=== PATIENT | male | born 1965 | race Caucasian/White ===

== ENCOUNTER 2020-06-30 11:17 | Emergency (ER) | payer MEDICAID, SELFPAY ==
[2020-06-30 11:25] VITALS: BP 154/98; PULSE 84; RESP 18; TEMP 36.8; O2SAT 98
--- NOTE | 2020-06-30 11:31 | ED.GENADUL_ITS ---
Discharge Plan Disposition Patient Disposition: HOME Condition: Stable Discharge Details Clinical Impression: Dental abscess, Tooth ache Primary Care Provider: Unknown,Unknown ED Provider: Amy Grossman Home Meds and New Rx's Prescriptions: New clindamycin HCl 300 mg capsule 300 mg PO BID 7 Days Qty: 14 RF: 0 Discharge Instructions Instructions: Dental Abscess (ED), Toothache (ED) Additional Instructions: Take the antibiotic as directed. Please take Tylenol or Ibuprofen with food every 4-6 hours as needed for pain and swelling. You still need to see a dentist. Give the antibiotics 3 days to work. Please return for any worsening swelling, fever, trouble swallowing or any concerns. He has been Hurricaine gel as directed. Medical Decision Making 55-year-old male presents to the ED with chief complaint of left lower jaw swelling and broken molars. He reports that he broke the bottom left tooth about a month ago has not been unable to get into the dentist today woke up with left-sided facial swelling. Painful to take denies any drainage. Took Aleve prior to arrival. He denies any trouble swallowing speaking in full sentences. On initial exam there is no area of fluctuance or drainable abscess noted. Posterior pharynx is red tonsils 2+ bilaterally no exudate. No anterior cervical lymphadenopathy. No palpable area of fluctuance on exam. Does have some perimandibular swelling. Broken molars noted #19 and 18. Patient was given benzocaine Hurricaine gel here in department and sent home wit h. Instructed on alternating Tylenol and ibuprofen. Patient was given first dose of clindamycin here in department and a prescription. Discussed follow-up with dentist and strict return instructions patient verbalized understanding. HPI General Mode of arrival: ambulatory . Date/Time Provider Initiated Documentation: 06/30/20 11:22 . Limitations to Documentation: no limitations . Information obtained by: patient and RN notes reviewed . HPI Narrative: 55-year-old male presents to the ED with chief complaint of left lower jaw swelling and broken molars. He reports that he broke the bottom left tooth about a month ago has not been unable to get into the dentist today woke up with left-sided facial swelling. Painful to take denies any drainage. Took Aleve prior to arrival. He denies any trouble swallowing speaking in full sentences. On initial exam there is no area of fluctuance or drainable abscess noted. Posterior pharynx is red tonsils 2+ bilaterally no exudate. No anterior cervical lymphadenopathy. Related Data Home Medications Medication Instructions Recorded Confirmed clindamycin HCl 300 mg PO BID 7 Days #14 cap 06/30/20 Previous Rx's Medication Instructions Recorded clindamycin HCl 300 mg PO BID 7 Days #14 cap 06/30/20 Allergies Allergy/AdvReac Type Severity Reaction Status Date / Time No Known Allergies Allergy Unverified 06/30/20 11:28 General Stated Complaint: DentalOral EVER: 4 Review of Systems All systems reviewed & are unremarkable except as noted in HPI and below ENT Ears, Nose, Mouth, and Throat: Reports dental pain, Denies dysphagia, Denies dizziness, Reports facial pain (Left-sided facial swelling), Denies sore throat, Denies throat swelling and Denies tongue swelling Cardiovascular Cardiovascular: Reports system reviewed and no additional complaints, except as documented Gastrointestinal Gastrointestinal: Denies dysphagia Neurologic Neurologic: Denies dizziness Allergic/Immunologic Allergic/Immunologic: Denies throat swelling and Denies tongue swelling PFSH Medical History (Updated 06/30/20 @ 11:58 by Amy Grossman) NSVT (nonsustained ventricular tachycardia) Surgical History (Updated 09/08/19 @ 09:18 by Juancarlos Bashir) Pacemaker (03/01/16) Social History Smoking/Tobacco Use Status: Current every day Tobacco Type: cigarettes Smoking risk assessment performed?: Yes Alcohol Intake: never Drug use: Daily Substance use type: marijuana Do you feel safe at home: Yes Do you feel safe in your relationship?: Yes Exam Narrative Exam Narrative: Constitutional: Alert and oriented x3. Appears stated age. Normal body habitus. Head: Normocephalic, no trauma. Eyes: Pupils PERRLA, Red reflex noted, EOM's intact. Eyelids symmetrical without lesions, discharge, or swelling. ENT: Bilateral TM's WNL, External ear normal to inspection, no mastoid TTP, swelling, or erythema, Nasal turbinates WNL, no nasal discharge. See ENT diag robby below Chest: RRR, Normal S1, S2, distal pulses intact. Resp: Lungs clear to auscultation bilaterally, no wheezes, rales, or rhonchi. Musculoskeletal: Normal gait, 5/5 strength to all four extremities. Skin: No suspicious rashes or lesions. Capillary refill less than 2 sec. Neurologic: Cranial nerves II-XII intact. Alert and oriented x 3. DTR's intact. Hematologic/Lymphatic: No ecchymosis, no lymphadenopathy. [facility] Head: normal to inspection Ears: hearing grossly normal bilaterally, external ears normal and TM's normal bilaterally General nose exam: external nose normal, nares normal, no nasal polyps and nasal mucous membranes and turbinates normal Face and sinus: normal facial exam, sinuses nontender and face symmetric Face images: 1. Swelling Mouth: no drooling Teeth and gingiva: caries, gingiva abnormal diffusely erythematous and tender; without any purulent discharge and poor dentition Teeth image: 1. Broken at the base 2. Broken at the base Throat: posterior oropharynx normal, tonsils normal and uvula midline Course Vital Signs Vital signs: Vital Signs Temperature 36.8 C 06/30/20 11:25 Pulse 84 06/30/20 11:25 Respiratory Rate 18 06/30/20 11:25 Blood Pressure 154/98 H 06/30/20 11:25 Pulse Oximetry 98 06/30/20 11:25 Temperature 36.8 C 06/30/20 11:25 Temperature Source Skin 06/30/20 11:25 Pulse 84 06/30/20 11:25 Respiratory Rate 18 06/30/20 11:25 Respiratory Effort Non-Labored 06/30/20 11:29 Blood Pressure 154/98 H 06/30/20 11:25 Blood Pressure Position Sitting 06/30/20 11:25 Pulse Oximetry 98 06/30/20 11:25 Oxygen Delivery Method Room Air 06/30/20 11:25 Oxygen Flow Rate 0 06/30/20 11:25 Pain Level 2 06/30/20 11:25
[2020-06-30] MEDS: Clindamycin 300 MG CAP PO (12:00)
[2020-06-30] MEDS: Benzocaine 20% Gel 30 GM JAR MM (12:01)
== END 2020-06-30 12:04 | disposition home or self-care (01) ==
PROVIDERS: Emergency Provider Registered Nurse Emergency
DX: K04.7 Periapical abscess without sinus (principal); K03.81 Cracked tooth
CPT/HCPCS: 99283

== ENCOUNTER 2021-10-29 10:08 | Emergency (ER) | payer MEDICAID, SELFPAY ==
[2021-10-29 10:14] VITALS: BP 124/81; PULSE 80; RESP 18; TEMP 36.5; O2SAT 98
--- NOTE | 2021-10-29 11:28 | ED.GENADUL_ITS ---
Discharge Plan Disposition Patient Disposition: HOME Condition: Improving Discharge Details Clinical Impression: Pain, dental Primary Care Provider: Unknown,Unknown ED Provider: Cal Luevano Home Meds and New Rx's Prescriptions: New amoxicillin-pot clavulanate 875-125 mg tablet 1 tab PO BID 7 Days Qty: 14 0RF Discharge Instructions Instructions: Toothache (ED) Additional Instructions: Please follow-up with your dentist. Please return to the emergency he develop any worsening symptoms specifically if you develop worsening facial swelling neck pain trouble swallowing trouble speaking fevers chills or other abnormal symptoms. Medical Decision Making 56-year-old male presents with left dental pain over the past several days, some slight facial swelling left submandibular region, nontoxic tolerating secretions no evidence of periapical abscess, multiple dental caries missing and fractured teeth, no evidence of deep space infection of the head or neck at this time. Likely localized tooth infection. Will start on Augmentin. Given home care instructions and return precautions. Patient will continue to seek dental care as an outpatient. HPI General Date/Time Provider Initiated Documentation: 10/29/21 11:28 . HPI Narrative: 56-year-old male presents with left lower molar tooth pain over the past several days. Some facial swelling. Endorses attempting to get into his dentist however having a hard time finding someone that would except a new patient. Denies trouble swallowing or breathing. No fevers or chills. Related Data Home Medications Medication Instructions Recorded Confirmed amoxicillin 875 mg-potassium 1 tab PO BID 7 days #14 tabs 10/29/21 clavulanate 125 mg tablet Previous Rx's Medication Instructions Recorded amoxicillin 875 mg-potassium 1 tab PO BID 7 days #14 tabs 10/29/21 clavulanate 125 mg tablet Allergies Allergy/AdvReac Type Severity Reaction Status Date / Time No Known Allergies Allergy Verified 09/06/20 09:04 General Stated Complaint: DentalOral EVER: 4 Review of Systems Narrative: Review of Systems Constitutional: negative Eyes: negative ENT: Tooth pain Cardiovascular: negative Respiratory: negative Gastrointestinal: negative : negative Musculoskeletal: negative Skin: negative Neurologic: negative Psych: negative PFSH All Active Problems (Updated 09/08/19 @ 09:18 by Juancarlos Bashir) Pain, dental (Acute) Dental abscess (Acute) Tooth ache (Acute) Sick sinus syndrome (Chronic) Diffuse large cell non-Hodgkin's lymphoma (Acute) Abdominal with 9 x 7 cm mass in the abdomen. Bone marrow biopsy negative. Received for 6 cycles. 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 Bone marrow biopsy negative. Received for 6 cycles. NSVT (nonsustained ventricular tachycardia) Sick sinus syndrome Syncope Tooth ache Surgical History (Updated 09/08/19 @ 09:18 by Juancarlos Bashir) Pacemaker (03/01/16) Social History Smoking/Tobacco Use Status: Current every day Tobacco Type: cigarettes Smoking risk assessment performed?: Yes Alcohol Intake: never Drug use: Daily Substance use type: marijuana Do you feel safe at home: Yes Do you feel safe in your relationship?: Yes Exam Narrative Exam Narrative: Physical Examination General: alert, awake, cooperative, resting comfortably, no acute distress HEENT: Multiple dental caries, missing and fractured teeth, no periapical abscess appreciated, soft submental and submandibular space; slight swelling externally in the submandibular region on the left without crepitus or fluctuance ; normocephalic, atraumatic; PERRL, EOM intact, conjunctiva normal; no nasal discharge; moist mucous membranes, oral and pharyngeal mucosa normal, t olerating secretions Neck: supple, trachea midline; full ROM Chest: normal to inspection Respiratory: normal respiratory effort, speaking in full sentences, clear to auscultation, no wheezing, rales or rhonchi Cardiac: regular rate, regular rhythm, S1S2 intact, no murmurs rubs or gallops GI: abdomen soft, non-tender, non-distended; no palpable mass or hepatosplenomegaly Skin: no lesions, rashes or trauma appreciated Neuro: AAOx3, normal speech, moving all extremities Extremities: Psych: Appropriate mood and affect Course Vital Signs Vital signs: Vital Signs Temperature 36.5 C 10/29/21 10:14 Pulse 80 10/29/21 10:14 Respiratory Rate 18 10/29/21 10:14 Blood Pressure 124/81 10/29/21 10:14 Pulse Oximetry 98 10/29/21 10:14 Temperature 36.5 C 10/29/21 10:14 Temperature Source Temporal Artery Scan 10/29/21 10:14 Pulse 80 10/29/21 10:14 Respiratory Rate 18 10/29/21 10:14 Blood Pressure 124/81 10/29/21 10:14 Blood Pressure Position Sitting 10/29/21 10:14 Pulse Oximetry 98 10/29/21 10:14 Oxygen Delivery Method Room Air 10/29/21 10:14 Oxygen Flow Rate 0 10/29/21 10:14
[2021-10-29] MEDS: Amoxicillin 875/Clav. 125 TAB PO (11:35)
[2021-10-29 11:36] VITALS: BP 111/72; PULSE 61; RESP 16; TEMP 36.5; O2SAT 96
== END 2021-10-29 11:44 | disposition home or self-care (01) ==
PROVIDERS: Emergency Provider Emergency Medicine
DX: K02.9 Dental caries, unspecified (principal); S02.5XXA Fracture of tooth (traumatic), initial encounter for closed fracture; F17.210 Nicotine dependence, cigarettes, uncomplicated; X58.XXXA Exposure to other specified factors, initial encounter
CPT/HCPCS: 99283

== ENCOUNTER 2021-12-21 08:15 | Emergency (ER) | payer MEDICAID, SELFPAY ==
[2021-12-21 08:18] VITALS: BP 138/82; PULSE 77; RESP 17; TEMP 36.7; O2SAT 99
--- NOTE | 2021-12-21 08:22 | W.ED.GENAD ---
Discharge Plan Disposition Patient Disposition: HOME Condition: Stable Discharge Details Clinical Impression: Herpes zoster Primary Care Provider: Unknown,Unknown ED Provider: Gavin Ayala Home Meds and New Rx's Prescriptions: New prednisone 20 mg tablet 60 mg PO DAILY 5 Days Qty: 15 0RF famciclovir 500 mg tablet 500 mg PO Q8H 7 Days Qty: 21 0RF Discharge Instructions Instructions: Shingles (ED) Additional Instructions: It appears as though you have shingles. 7 cycle of the air and prednisone as directed. [id number] Tylenol and/or Motrin as directed for discomfort. Please watch for new or worsening symptoms and return to the ER for any concerns. Eye care referral has been provided if you begin to develop any symptoms within your eye please follow-up with them immediately. Otherwise please contact your primary care provider later today to make them aware of your ER visit and set up outpatient reevaluation sometime next week. Referrals: [facility] [Outside] Medical Decision Making This is a 56-year-old gentleman who reports right sided scalp, head, upper face pain for the past couple of days and has subsequently developed a rash in that same area. Clinically this appears consistent with shingles. There does not appear to be any ear or eye involvement. Fluorescein used, no dendritic lesions. He is afebrile, no evidence of nuchal rigidity, no lymphadenopathy. Clinically he appears well, nontoxic, neurologically intact. Will provide a prescription for antiviral. We discussed the use of steroids in the setting, he is open to the idea of being treated with steroids and has no contraindications. We will also provide prescription for steroids. We discussed the importance of outpatient follow-up with an med specialist if he develops any eye symptoms, will provide eye care referral. Also recommend that he contact his primary care provider to discuss his ER visit and need for outpatient reevaluation. Standard discharge and return precautions were provided. Patient understands, is agreeable to this plan, and has no additional questions or concerns upon discharge. This documentation was generated using [employer]Ping[employer] system, please disregard any oddities of phrase or misspellings. Medical Records Medical records reviewed: Yes I reviewed the patient's medical records. HPI General Mode of arrival: ambulatory. Date/Time Provider Initiated Documentation: 12/21/21 08:16. Limitations to Documentation: no limitations. Information obtained by: patient. HPI Narrative: This is a 56-year-old gentleman with past medical history of alcohol abuse, depression, sick sinus syndrome now with a pacemaker, presenting to the ER reporting right-sided head and scalp pain for the past 2 days subsequently developing a rash over the past 12 hours. He reports the pain is constant, worse with palpation, moderate to severe in nature. He denies rash elsewhere on his body. He has not taken any medication for his symptoms. He denies any ear or eye pain. No change of his vision. Patient denies recent illness. He denies fever, neck pain, numbness, tingling, weakness. Patient denies history of shingles. Related Data Home Medications Medication Instructions Recorded Confirmed famciclovir 500 mg tablet 500 mg PO Q8H 7 days #21 tabs 12/21/21 prednisone 20 mg tablet 60 mg PO DAILY 5 days #15 tabs 12/21/21 Previous Rx's Medication Instructions Recorded famciclovir 500 mg tablet 500 mg PO Q8H 7 days #21 tabs 22 prednisone 20 mg tablet 60 mg PO DAILY 5 days #15 tabs 12/21/21 Allergies Allergy/AdvReac Type Severity Reaction Status Date / Time No Known Allergies Allergy Verified 12/21/21 08:26 General Stated Complaint: Headache EVER: 4 Review of Systems Constitutional Constitutional: Denies fever(s), Reports headache(s) and Denies weakness Eyes Eyes: Denies change in vision, Denies eye discharge and Denies eye pain ENT Ears, Nose, Mouth, and Throat: Reports headache(s) and Denies neck pain Cardiovascular Cardiovascular: Denies chest pain Gastrointestinal Gastrointestinal: Denies nausea and Denies vomiting Musculoskeletal Musculoskeletal: Denies neck pain, Denies numbness and Denies tingling Integumentary/Breasts Skin/Breast: Reports rash Neurologic Neurologic: Reports headache(s), Denies numbness, Denies tingling and Denies weakness PFSH All Active Problems Herpes zoster (Acute) Dental abscess (Acute) Tooth ache (Acute) Sick sinus syndrome (Chronic) Diffuse large cell non-Hodgkin's lymphoma (Acute) Abdominal with 9 x 7 cm mass in the abdomen. Bone marrow biopsy negative. Received for 6 cycles. NSVT (nonsustained ventricular tachycardia) (Acute) Eczema (Acute) chronic Pancreatitis (Acute) secondary to stent placement for lymphoma 12/2010 GI bleeding secondary to stent removal with transfusions Smoker (Chronic) Unilateral inguinal hernia (Acute 02/05/12) RIGHT S/P placement of cardiac pacemaker (Chronic 03/01/16) Medtr[employer] dual lead Medical History Alcohol abuse Depressive disorder Syncope Surgical History Pacemaker (03/01/16) Social History Smoking/Tobacco Use Status: Current every day Tobacco Type: cigarettes Smoking risk assessment performed?: Yes Alcohol Intake: never Drug use: Daily Substance use type: marijuana Do you feel safe at home: Yes Do you feel safe in your relationship?: Yes Exam Const General: cooperative, healthy appearing, comfortable and no acute distress Orientation: alert and awake HENMT Head: normocephalic and atraumatic Ears: external ears normal, TM's normal bilaterally and EAC's normal General nose exam: external nose normal Face images: 1. There is a macular-papular erythematous rash with intact papules, tender to palpation, consistent with shingles. No drainage or signs of secondary infection. No eye involvement. Mouth: oral mucosae normal and moist mucous membranes Throat: posterior oropharynx normal Eyes General: appearance normal, both eyes and all related structures Alignment and Position: alignment normal Periorbital: periorbital findings normal Eyelids: eyelids normal Conjunctivae: conjunctivae normal and other Sclera: sclerae normal Cornea: corneas normal, fluorescein used and other (No dendritic lesions noted) Pupils: PERRL EOM: EOM intact bilaterally Direct ophthalmoscopy: normal light reflex Neck Neck: normal visual inspection, full ROM, no lymphadenopathy, no meningeal signs, trachea midline, supple and nontender Resp Effort & Inspection: normal respiratory effort and able to speak in complete sentences Skin General skin exam: other (Rash as above) Neuro General: patient alert, patient awake, patient oriented x3, moves all extremities and no focal motor deficits Cranial Nerves: CN's II-XI intact bilaterally Cognition: normal cognition Speech: speech normal Gait: normal gait Motor: muscle tone normal throughout Sensory Exam: no sensory deficits noted Extrem General: full ROM Psych Appearance: grossly normal Mental Status: mental status grossly normal Course Vital Signs Vital signs: Vital Signs Temperature 36.7 C 12/21/21 08:18 Pulse 77 12/21/21 08:18 Respiratory Rate 17 12/21/21 08:18 Blood Pressure 138/82 12/21/21 08:18 Pulse Oximetry 99 12/21/21 08:18 Temperature 36.7 C 12/21/21 08:18 Temperature Source Temporal Artery Scan 12/21/21 08:18 Pulse 77 12/21/21 08:18 Respiratory Rate 17 12/21/21 08:18 Blood Pressure 138/82 12/21/21 08:18 Blood Pressure Position Sitting 12/21/21 08:18 Pulse Oximetry 99 12/21/21 08:18 Oxygen Delivery Method Room Air 12/21/21 08:18 Oxygen Flow Rate 0 12/21/21 08:18 Pain Level 5 12/21/21 08:18
[2021-12-21] MEDS: Balanced Salt Solution 15 ML BTL (08:41)
[2021-12-21] MEDS: Fluorescein STRIPS 100/BOX 1 MG (08:41)
== END 2021-12-21 12:15 | disposition home or self-care (01) ==
PROVIDERS: Emergency Provider Physician Assistant
DX: B02.9 Zoster without complications (principal); F17.210 Nicotine dependence, cigarettes, uncomplicated
CPT/HCPCS: 99283; 99284

== ENCOUNTER 2022-02-04 07:51 | Emergency (ER) | payer MEDICAID, SELFPAY ==
[2022-02-04 07:55] VITALS: BP 137/83; PULSE 65; RESP 20; TEMP 36.4; O2SAT 99
--- NOTE | 2022-02-04 08:06 | ED.GENADUL_ITS ---
Discharge Plan Disposition Patient Disposition: HOME Condition: Stable Discharge Details Chief Complaint: DentalOral Clinical Impression: Dental infection ED Provider: Silvina Alves Home Meds and New Rx's Prescriptions: New amoxicillin-pot clavulanate 875-125 mg tablet 1 tab PO BID Qty: 14 0RF Discharge Instructions Instructions: Dental Abscess (ED) Additional Instructions: Your exam is concerning for recurrent dental infection. He will need definitive care with a dentist. Please see attached list of local dentist and call today to try and schedule close follow-up appointment. Please encourage hydration. Tylenol and/or ibuprofen as needed for discomfort. May do salt water or diluted hydrogen peroxide rinses to help with this. Please take the antibiotics as pre scribed. Even if symptoms improve, please take the entire course. If you develop fever/chills, worsening swelling, swelling in your throat, headaches or other new/worsening symptoms please seek care urgently with again. Discharge Data Discharge Date/Time-TO BE ENTERED AT DEPARTURE: 02/04/22 08:16 Medical Decision Making Patient is a pleasant 56-year-old male presenting today with chief complaint of dental pain. He reports that at the same area that he was seen here for previously. Was diagnosed with dental infection in October. He reports that her infection seems to subside well with that he was previously prescribed. However, he has not yet been able to get in with a dentist and have recurrence of his symptoms this morning. He denies any fevers or chills. No radiation of pain. He denies any headaches. On exam, patient presents is a small area of swelling over the left lower dental region. He has pain along the lingual aspect with palpation. No periapical abscess. No submandibular swelling. No palpable lymphadenopathy. He does have poor dentition with multiple broken teeth, likely the source of his current infection. We will give him a list of local dentists. He is going to call today to schedule prompt follow-up for definitive care. Return precautions were discussed. We discussed pain management. All questions or concerns were addressed with agreement of this plan. HPI General Date/Time Provider Initiated Documentation: 02/04/22 07:53 . Limitations to Documentation: no limitations . Information obtained by: patient, RN notes reviewed and old records reviewed . History of Present Illness 56 year old M presents to the emergency department with the chief complaint of left lower dental pain, facial swelling, described as moderate and similar to prior episodes, Quality is described as aching, and is localized to the mouth. Patient reports no radiation. Patient started experiencing this hour(s) (woke with recurrent pain this AM) and it has been constant. No relieving factors improve symptom(s), Eating worsens symptoms . Patient notes no other symptoms.; denies fever/chills, headaches, malaise, nausea/vomiting, rash and shortness of breath. Patient did receive the following treatments prior to arrival, none Related Data Home Medications Medication Instructions Recorded Confirmed amoxicillin 875 mg-potassium 1 tab PO BID #14 tabs 02/04/22 clavulanate 125 mg tablet Previous Rx's Medication Instructions Recorded amoxicillin 875 mg-potassium 1 tab PO BID #14 tabs 02/04/22 clavulanate 125 mg tablet Allergies Allergy/AdvReac Type Severity Reaction Status Date / Time No Known Allergies Allergy Verified 12/21/21 08:26 General Stated Complaint: DentalOral EVER: 4 Review of Systems Constitutional Constitutional: Reports as per HPI, Denies chills, Denies fatigue, Denies fever(s) and Denies headache(s) ENT Ears, Nose, Mouth, and Throat: Reports as per HPI, Reports dental pain, Denies dysphagia, Denies otalgia, Reports facial pain, Denies headache(s), Denies hoarseness, Denies odynophagia and Denies sore throat Cardiovascular Cardiovascular: Reports as per HPI and Denies chest pain Respiratory Respiratory: Reports as per HPI and Denies cough Gastrointestinal Gastrointestinal: Reports as per HPI, Denies dysphagia, Denies nausea, Denies odynophagia and Denies vomiting Integumentary/Breasts Skin/Breast: Reports as per HPI, Denies erythema, Denies rash and Denies skin pain Neurologic Neurologic: Reports as per HPI and Denies headache(s) Endocrine Endocrine: Denies fatigue PFSH All Active Problems Dental infection (Acute) Dental abscess (Acute) Tooth ache (Acute) Sick sinus syndrome (Chronic) Diffuse large cell non-Hodgkin's lymphoma (Acute) Abdominal with 9 x 7 cm mass in the abdomen. Bone marrow biopsy negative. Received for 6 cycles. NSVT (nonsustained ventricular tachycardia) (Acute) Eczema (Acute) chronic Pancreatitis (Acute) secondary to stent placement for lymphoma 12/2010 GI bleeding secondary to stent removal with transfusions Smoker (Chronic) Unilateral inguinal hernia (Acute 02/05/12) RIGHT S/P placement of cardiac pacemaker (Chronic 03/01/16) Medtronic dual lead Medical History Alcohol abuse Depressive disorder Syncope Surgical History Pacemaker (03/01/16) Social History Smoking/Tobacco Use Status: Current every day Tobacco Type: cigarettes Smoking risk assessment performed?: Yes Alcohol Intake: never Drug use: Daily Substance use type: marijuana Do you feel safe at home: Yes Do you feel safe in your relationship?: Yes Exam Const General: cooperative, healthy appearing, comfortable, no acute distress, well developed and well groomed Nutritional Appearance: average body habitus and well nourished Orientation: alert and awake [facility] Head: normal to inspection, normocephalic and atraumatic Ears: hearing grossly normal bilaterally, external ears normal and TM's normal bilaterally General nose exam: external nose normal and nares normal Face and sinus: abnormal facial exam (swelling over the left lower dentition, no erythema or warmth) and sinuses nontender Mouth: oral mucosae normal, tongue normal, moist mucous membranes, no audible dysphonia, no drooling, No mouth trauma, no muffled voice, no trismus and No restricted motion Teeth and gingiva: poor dentition (area of lingual gingival swelling and erythema but no fluctuance ) Throat: posterior oropharynx normal, tonsils normal and uvula midline Eyes General: appearance normal, both eyes and all related structures Neck Neck: normal visual inspection, full ROM, no lymphadenopathy, supple and no anterior neck swelling Resp Effort & Inspection: normal respiratory effort, able to speak in complete sentences and no respiratory distress Auscultation: clear to auscultation bilaterally, no rales, no rhonchi and no wheezes Cardio Rate: regular rate Rhythm: regular rhythm Heart Sounds: S1 normal and S2 normal Skin General skin exam: no rashes or lesions noted Trauma: no lacerations or abrasions Neuro General: patient alert and patient awake Cognition: normal cognition Speech: speech normal Gait: normal gait Psych Appearance: grossly normal and well kempt Mental Status: mental status grossly normal Speech and Movement: speech and movement normal Course Vital Signs Vital signs: Vital Signs Temperature 36.4 C L 02/04/22 07:55 Pulse 65 02/04/22 07:55 Respiratory Rate 20 02/04/22 07:55 Blood Pressure 137/83 02/04/22 07:55 Pulse Oximetry 99 02/04/22 07:55 Temperature 36.4 C L 02/04/22 07:55 Temperature Source Tympanic 02/04/22 07:55 Pulse 65 02/04/22 07:55 Respiratory Rate 20 02/04/22 07:55 Blood Pressure 137/83 02/04/22 07:55 Blood Pressure Position Sitting 02/04/22 07:55 Pulse Oximetry 99 02/04/22 07:55 Oxygen Delivery Method Room Air 02/04/22 07:55 Oxygen Flow Rate 0 02/04/22 07:55
== END 2022-02-04 08:16 | disposition home or self-care (01) ==
PROVIDERS: Emergency Provider Physician Assistant
DX: K04.7 Periapical abscess without sinus (principal)
CPT/HCPCS: 99283

== ENCOUNTER 2022-09-11 08:18 | Outpatient (CLI) | payer MEDICAID, SELFPAY | END 2022-09-11 08:19 | disposition home or self-care (01) | LOC: DI.CARD 08:18 | PROVIDERS: Visit Provider Physician Assistant | DX: I49.5 Sick sinus syndrome (principal) | CPT/HCPCS: 93010 ==

== ENCOUNTER 2022-09-25 02:39 | Outpatient (CLI) | payer MEDICAID, SELFPAY ==
[2022-09-25 12:25] LABS: HCT 50.7 % (40.0-50.0); HGB 17.2 g/dL (13.5-17.5); MCH 30.6 pg (27.0-33.0); MCHC 33.9 % (32.0-36.0); MCV 90 fL (80-95); MPV 10.4 fL (8.0-11.0); Platelet Count 245 10^3/uL (130-400); RBC 5.62 10^6/uL (4.36-5.78); RDW-SD 39.8 fL; WBC 6.83 10^3/uL (4.4-10.8)
[2022-09-25 12:55] LABS: Anion Gap 9.2 mmol/L (3-11); BUN 16 mg/dL (7-18); CO2 27.8 mmol/L (21.0-32.0); Calcium 9.1 mg/dL (8.5-10.1); Calculated LDL 134 mg/dL (<100); Chloride 105 mmol/L (98-107); Cholesterol 198 mg/dL (<200); Estimated GFR 87.78 (mL/min/1.73m2); Glucose 115 mg/dL (74-106); HDL Cholesterol 43 mg/dL (40-60); Potassium 4.5 mmol/L (3.5-5.1); Sodium 142 mmol/L (136-145); Triglyceride 109 mg/dL (<150)
[2022-09-26 10:37] LABS: PSA, Screening 0.7 ng/mL (<=3.5)
== END 2022-09-25 02:40 | disposition home or self-care (01) ==
LOC: LOS 02:39
PROVIDERS: PCP Nurse Practitioner Family; Visit Provider Nurse Practitioner Family
DX: Z00.00 Encounter for general adult medical examination without abnormal findings (principal)
CPT/HCPCS: 80048; 80061; 84153; 85027

== ENCOUNTER 2023-02-05 14:50 | Emergency (ER) | payer MEDICAID, SELFPAY ==
--- NOTE | 2023-02-05 14:45 | RT.EKG_ITS ---
APPROVED REPORT Exam: Resting ECG Reason for Exam: chest pain Patient Location: E HR:70 bpm ECG Measurements Heart Rate 70 AXIS [place] 210 P -54 QRSd 133 QRS -83 QT 432 T 104 QTc 466 Conclusion Atrial-sensed ventricular-paced rhythm...ventricular pacing tracks p-waves
[2023-02-05 14:54] VITALS: BP 142/72; PULSE 85; RESP 24; TEMP 36.6; O2SAT 96
--- NOTE | 2023-02-05 15:03 | DI.RAD_ITS ---
Exam(s) XR RIBS LT W PA LAT CHEST EXAM: XR RIBS LT W PA LAT CHEST CLINICAL HISTORY: pain. TECHNIQUE: 2D digital imaging was performed. COMPARISON: No exams were available for comparison FINDINGS: Left ribs-four views: Subtle suggestion of a possible nondisplaced fracture of the lateral aspect of the left 11th rib. Th is is seen on 1 image. No left rib lesions identified. CXR-two views: Heart size is normal. Bipolar pacemaker again noted with lead tips in RA and right ve ntricle. Mediastinum not widened. Lungs are clear with no infiltrates nor pleural effusions. No pn eumothorax. IMPRESSION: Possible subtle fracture of the left 11th rib. No acute pulmonary findings. DATA REPOSITORY: RADIATION DOSE DELIVERED:
--- NOTE | 2023-02-05 15:07 | ED.GENADUL_ITS ---
Discharge Plan Disposition Patient Disposition: Home Condition: Stable Discharge Details Clinical Impression: Closed rib fracture Primary Care Provider: Tonia Ferris ED Provider: Axel Tejada Home Meds and New Rx's Prescriptions: New tramadol 50 mg tablet 50 mg PO TID PRN (Reason: pain) Qty: 7 0RF Discharge Instructions Instructions: Rib Fracture (ED) HPI General Date/Time Provider Initiated Documentation: 02/05/23 14:56 . HPI Narrative: 57 year old male with hx pacemaker, distant hx EtOH, quit 20 years ago, 1 ppd smoker, presents to the ED with c/o pain under his left ribs for the past month. He denies any accidents or injuries. No cp, no sob no cough. Pain is worse with movement and position change. Denies any abd pain. No n/v/d. Eating and drinking fine, no fever/chills. No flank pain or urinary sx's. Related Data Home Medications Medication Instructions Recorded Confirmed tramadol 50 mg tablet 50 mg PO TID PRN pain #7 tabs 02/05/23 Previous Rx's Medication Instructions Recorded tramadol 50 mg tablet 50 mg PO TID PRN pain #7 tabs 02/05/23 Allergies Allergy/AdvReac Type Severity Reaction Status Date / Time No Known Allergies Allergy Verified 02/05/23 14:59 General Stated Complaint: Chest/Rib EVER: 3 Review of Systems Narrative: CONST: no fever or chills HEENT: no sore throat SKIN: no rashes PULM: no sob, no cough CARD: no cp, no palpitations ABD: no abd pain EXTR: no swelling NEURO: No focal weakness PFSH All Active Problems (Updated 09/17/22 @ 13:20 by Tonia Ferris, CHARO) Closed rib fracture (Acute) Dental abscess (Acute) Tooth ache (Acute) Sick sinus syndrome (Chronic) Diffuse large cell non-Hodgkin's lymphoma (Acute) Abdominal with 9 x 7 cm mass in the abdomen. Bone marrow biopsy negative. Received for 6 cycles. NSVT (nonsustained ventricular tachycardia) (Acute) Eczema (Acute) chronic Pancreatitis (Acute) secondary to stent placement for lymphoma 12/2010 GI bleeding secondary to stent removal with transfusions Smoker (Chronic) Unilateral inguinal hernia (Acute 02/05/12) RIGHT S/P placement of cardiac pacemaker (Chronic 03/01/16) Medtronic dual lead Medical History (Updated 02/05/23 @ 15:48 by Axel Tejada MD) Alcohol abuse Depressive disorder Syncope Social History Smoking/Tobacco Use Status: Current every day Tobacco Type: cigarettes Smoking risk assessment performed?: Yes Alcohol Intake: never Drug use: Daily Substance use type: marijuana Do you feel safe at home: Yes Do you feel safe in your relationship?: Yes Exam Narrative Exam Narrative: Const: well appearing, no acute distress HEENT: normocephalic, atraumatic; MMM Lungs: CTA, no wheezing or rales Heart: RRR Abd: soft, NT/ND Ext: well perfused Neuro: non-focal Skin: no rashes Course 57 year old male with 1 month of pain under his left ribs, rates 3/10, worse with movement. He has normal VS, benign abd exam, soft and NT, no point tenderness to ribs, no crepitus. Will check some basic labs and xray. If neg then can f/u closely with pcp for further work-up. Reevaluation(s) Initial Evaluation: Labs reassuring without acute issue, xrays with ?subtle L 11th rib fx, unclear how it may have happened, although is in area of his discomfort. Rx for some pain meds, and f/u with pcp. Vital Signs Vital signs: Vital Signs Temperature 36.6 C 02/05/23 14:54 Pulse 85 02/05/23 14:54 Respiratory Rate 24 02/05/23 14:54 Blood Pressure 142/72 H 02/05/23 14:54 Pulse Oximetry 96 02/05/23 14:54 Temperature 36.6 C 02/05/23 14:54 Temperature Source Tympanic 02/05/23 14:54 Pulse 85 02/05/23 14:54 Respiratory Rate 24 02/05/23 14:54 Respiratory Effort Normal 02/05/23 14:59 Respiratory Depth Normal 02/05/23 14:59 Respiratory Pattern Normal 02/05/23 14:59 Blood Pressure 142/72 H 02/05/23 14:54 Blood Pressure Position Sitting 02/05/23 14:54 Pulse Oximetry 96 02/05/23 14:54 Pain Level 3 02/05/23 14:59
[2023-02-05 15:19] LABS: Abs Immature Grans 0.04 10^3/uL (0.0-0.06); Absolute Eosinophil Count 0.04 10^3/uL (0.0-0.7); Basophils % 0.8; Eosinophils % 0.3; Immature Grans % 0.3; Lymphocytes % 9.1; MCH 30.7 pg (27.0-33.0); MCHC 34.8 % (32.0-36.0); MCV 88 fL (80-95); MPV 9.6 fL (8.0-11.0); Neutrophils % 83.5; Platelet Count 227 10^3/uL (130-400); RBC 5.21 10^6/uL (4.36-5.78); RDW 12.4 % (11.8-14.1); WBC 12.09 10^3/uL (4.4-10.8)
[2023-02-05 15:22] LABS: Absolute Monocyte Count 0.73 10^3/uL (0.1-0.8)
[2023-02-05 15:40] LABS: ALT 25 U/L (16-63); AST 16 U/L (15-37); Albumin 3.9 g/dL (3.4-5.0); Alkaline Phosphatase 80 U/L (46-116); Anion Gap 9.9 mmol/L (3-11); BUN 16 mg/dL (7-18); Bilirubin, Total 0.4 mg/dL (0.2-1.0); CO2 24.1 mmol/L (21.0-32.0); Calcium 9.2 mg/dL (8.5-10.1); Chloride 102 mmol/L (98-107); Estimated GFR 87.78 (mL/min/1.73m2); Glucose 110 mg/dL (74-106); Lipase 25 U/L (16-77); Potassium 3.8 mmol/L (3.5-5.1); Sodium 136 mmol/L (136-145); Total Protein 6.9 g/dL (6.4-8.2); Troponin I < 50 ng/L (<or=60)
[2023-02-05 15:53] LABS: Bilirubin Negative (Negative); Blood Negative (Negative); Clarity Clear (Clear); Glucose Negative (Negative); Ketones Negative (Negative); Leukocyte Esterase Negative (Negative); Nitrite Negative (Negative); Specific Gravity 1.025 (1.005-1.025); Urobilinogen 0.2 mg/dL (Up to 0.2)
[2023-02-05 16:01] LABS: Bacteria Few HPF (Negative); Crystals Few Amorphous HPF (Negative); Epithelial Cells Rare HPF (Negative); RBC Negative HPF (0-2); WBC Negative HPF (0-5)
[2023-02-05 16:02] LABS: C & S Indicated? No; Casts 0-2 Hyaline LPF (Negative); Mucus Trace (Negative)
== END 2023-02-05 15:54 | disposition home or self-care (01) ==
PROVIDERS: Emergency Provider Emergency Medicine; PCP Nurse Practitioner Family
DX: S22.32XA Fracture of one rib, left side, initial encounter for closed fracture (principal); F17.210 Nicotine dependence, cigarettes, uncomplicated; Z95.0 Presence of cardiac pacemaker; X58.XXXA Exposure to other specified factors, initial encounter
CPT/HCPCS: 80053; 83690; 93005; 99283; 71046; 71100; 81003; 81015; 84484; 85025; 93010

== ENCOUNTER → 2023-09-30 01:33 | Outpatient (CLI) | payer MEDICAID, SELFPAY ==
--- NOTE | 2023-09-30 15:30 | DI.US_ITS ---
APPROVED REPORT EXAM: Comprehensive 2D, Doppler, and color-flow Echocardiogram Patient Location: Out-Patient Trading Assistant: Dania Palencia RDCS (AE) Indications: Cardiac function with 100% ventricular pacing, complete heart block, pacemaker Other Information Study Quality: Adequate. Technically limited study due to body habitus, limited parasternal imaging. Conclusion Normal left ventricular wall thickness and chamber size. Ejection fraction is 60 to 65%. Wall motio n is normal Normal right ventricular size and function Both atria are normal in size Device lead noted in the right heart There is no structural or hemodynamically significant valvular disease Estimated right ventricular systolic pressure is 29 mmHg Wall motion Left Ventricle Technically limited parasternal imaging. The left ventricular systolic function is normal. The left v entricular ejection fraction is within the normal range. There is normal LV segmental wall motion. Th ere is no ventricular septal defect visualized. LVEF is 60-65%. Right Ventricle Right ventricle is grossly normal in size. Right ventricular systolic function is grossly normal. Pac emaker lead is present in the right ventricle. Atria The left atrium size is normal. The right atrium size is normal. The interatrial septum is intact wit h no evidence for an atrial septal defect. Aortic Valve The aortic valve is normal in structure. Aortic valve is trileaflet. There is no aortic valvular sten osis. No aortic regurgitation is present. Mitral Valve The mitral valve is normal in structure. No evidence of mitral valve stenosis. Trace mitral regurgita tion. Tricuspid Valve The tricuspid valve is normal in structure. There is no tricuspid valve stenosis. Trace tricuspid reg urgitation. The RVSP is 29.6 mmHg. Pulmonic Valve Pulmonic valve is not well visualized in parasternal imaging window. Subcostal imaging window pulmoni c valve appears normal. There is no pulmonic valvular stenosis. There is no pulmonic valvular regurgi tation. Great Vessels The aortic root is normal in size. Ascending aorta is not well visualized. Aortic arch is not well vi sualized. IVC is normal in size and collapses >50% with inspiration. Pericardium There is no pericardial effusion. 2D Dimensions Ao Root d 3.08 cm M: 3.1 - 3.7 Auto EF LV EDV A4C 88.5 mL LV EDV A2C 113.5 mL LV EDV BP 101.5 mL LV ESV A4C 31.2 mL LV ESV A2C 46.8 mL LV ESV BP 38.0 mL LVEF(%) A4C 64.8 % LVEF(%) A2C 58.7 % LVEF(%) BP 62.5 % LV SV A4C 57.3 ml LV SV A2C 66.7 ml LV SV BP 63.4 ml LV CO A4C 3.8 L/min LV CO A2C 4.4 L/min LV CO BP 4.1 L/min HR A4C 65.69 BPM HR A2C 65.69 BPM LV EDV Index (BP) LV Strain Long Pk Overal Avg (s) 20.81 RV Strain Global Peak Long. Strain A4C 22.85 Global Peak Long. Strain A4C FW 28.73 LA Volume LA Length A4C 5.2 cm LA Length A2C 4.7 cm LA Area A4C s 16.64 cm2 LA Area A2C s 14.63 cm2 LA Vol A4C A-L 45.42 mL LA Vol A2C A-L 38.91 mL LA Vol Biplane A-L 44.3 mL LA Vol/BSA A4C A-L LA Vol/BSA A2C A-L LA Vol/BSA BP A-L 21.7 mL/m2 LA Vol A4C MOD 42.4 mL LA Vol A2C MOD 37.3 mL LA Vol BP MOD 41.5 mL RA Volume RA Area A4C 15.0 cm2 RA ESV A4C (A-L) 39.9mL RA Vol/BSA A4C A-L RA Length A4C 4.8 cm RA ESV A4C (MOD) 38.5mL LV Diastology MV E' medial 0.127 (>0.07 m/s) MV E Vmax 0.89 (0.4-1.3 m/s) MV E/E' MED 7.01 (<14) MV A Vmax 0.75 (0.4-1.3 m/s) E/A Ratio 1.2 Aortic Valve AoV Vmax 1.97 m/s LVOT Vmax 1.45 m/s AoV Peak Grad 15.5 mmHg LVOT Peak Grad 8.4 mmHg AoV Area (Vmax) 2.29 cm2 LVOT VTI 0.278 m AoV VTI 0.384 m LVOT Mean Grad 4.5 mmHg AoV Mean Andrea. 1.46 m/s LVOT SV 86.27 mL AoV Mean Grad 9.6 mmHg LVOT Diam s 1.95 cm AoV Area (VTI) 2.24 cm2 Velocity Ratio 0.74 Mitral Valve MV DT 349 (160-240 msec) MV Vmax TIPS 0.87 m/s MV Mean Grad 1.7 (<2mmHg) MV VTI 0.353 m Pulmonary Valve PV Vmax 1.22 (0.5-1.5 m/s) RVOT Vmax 1.04 m/s PV Peak Grad 5.9 mmHg RVOT Peak Gr. 4.3 mmHg PV Mean Andrea 0.92 m/s RVOT VTI 0.215 m PV Mean Grad 3.8 mmHg RVOT Mean Gr. 2.3 mmHg Tricuspid Valve RA Pressure 3.00 mmHg TR Vmax 2.58 m/s TV S' 0.18 m/s TR Peak Grad 26.5 mmHg RVSP (TR) 29.6 mmHg
== END ==
PROVIDERS: PCP Nurse Practitioner Family; Visit Provider Student in an Organized Health Care Education/Training Program
DX: Z95.0 Presence of cardiac pacemaker (principal); I44.2 Atrioventricular block, complete
CPT/HCPCS: 93306

== ENCOUNTER 2024-09-08 07:53 | Outpatient (CLI) | payer MEDICAID, SELFPAY ==
--- NOTE | 2024-09-08 07:45 | RT.EKG_ITS ---
APPROVED REPORT Exam: Resting ECG Reason for Exam: SVT Patient Location: O HR:63 bpm ECG Measurements Heart Rate 63 AXIS [place] 210 P 78 QRSd 126 QRS -69 QT 429 T 95 QTc 440 Conclusion Atrial-ventricular dual-paced complexes...other complexes also detected No further analysis attempted due to paced rhythm
== END 2024-09-08 07:54 | disposition home or self-care (01) ==
LOC: DI.CARD 07:53
PROVIDERS: PCP Nurse Practitioner Family; Visit Provider Registered Nurse
DX: I49.5 Sick sinus syndrome (principal); I44.2 Atrioventricular block, complete
CPT/HCPCS: 93010